=== PATIENT | female | born 1990 | race African-American/Black ===

== ENCOUNTER 2016-10-18 07:31 | Day surgery (SDC) | payer BC ==
[2016-10-16 16:05] LABS: BASOPHILS 0.5 %; BASOPHILS ABSOLUTE 0.03 10/3/uL (0.0-0.16); EOSINOPHILS ABSOLUTE 0.28 10/3/uL (0.0-0.53); HEMATOCRIT 35.3 % (36.0-48.0); HEMOGLOBIN 11.3 g/dL (12.0-16.0); IMMATURE GRANULOCYTES 0.2 %; IMMATURE GRANULOCYTES ABSOLUTE 0.01 10/3/uL (0.0-0.11); LYMPHOCYTES 47.6 %; LYMPHOCYTES ABSOLUTE 2.66 10/3/uL (0.67-4.30); MANUAL DIFF NO %; MEAN CORPUSCULAR HEMOGLOB 26.3 pg (26.0-34.0); MEAN CORPUSCULAR VOLUME 82.1 fL (80-100); MEAN PLATELET VOLUME 9.5 fL (9.2-13.0); MONOCYTES 6.8 %; MONOCYTES ABSOLUTE 0.38 10/3/uL (0.21-1.20); NEUTROPHILS 39.9 %; NEUTROPHILS ABSOLUTE 2.23 10/3/uL (2.02-8.40); PLATELET COUNT 420 10/3/uL (150-400); RBC DISTRIBUTION WIDTH 14.2 % (12.0-16.0); WHITE BLOOD CELLS 5.6 10/3/uL (4.5-10.5)
[2016-10-16 16:17] LABS: PARTIAL THROMBO TIME 29.4 SEC (22.5-37.2); PROTIME (NOT ORD) 12.9 SEC (12.0-14.5)
[2016-10-16 16:24] LABS: ALBUMIN 3.8 G/DL (3.5-5.0); ALKALINE PHOSPHATASE 76 U/L (45-117); BUN (BLOOD UREA NITROGEN) 7 MG/DL (6-23); CALCIUM, SERUM 8.3 MG/DL (8.5-10.4); CHLORIDE, SERUM 109 MMOL/L (96-112); CO2 (CARBON DIOXIDE) 26 MMOL/L (24-34); CREATININE 0.61 MG/DL (0.55-1.02); GFR AFRICAN AMERICAN 147 ML/MIN (>=60); GFR NON AFRICAN AMERICAN 127 ML/MIN (>=60); GLOBULIN 3.7 G/DL (2.5-4.1); GLUCOSE, SERUM 87 MG/DL (60-99); POTASSIUM, SERUM 3.8 MMOL/L (3.5-5.3); SGOT(AST) 12 U/L (5-40); SGPT(ALT) 14 U/L (5-65); SODIUM, SERUM 142 MMOL/L (135-148); TOTAL BILIRUBIN 0.2 MG/DL (0-1.2); TOTAL PROTEIN 7.5 G/DL (6.0-8.5)
--- NOTE | ~2016-10-18 | OP ---
Record Of Operation [facility] [address] [place]. [address] NAME: DOROTA ORTEGA : 89 [place]US : [place] [facility] [place]#: [id number] AGE: 25 ADM/REG DATE : 10/18/16 MR#: [id number] REPORT SERV DATE: 10/18/16 DICTATED BY: DAVID CAPPS III DATE: 10/18/16 REPORT STATUS : Draft TRANSCRIBED BY: MODJoseph DATE: 10/18/16 DATE OF PROCEDURE: 10/18/2016 PREOPERATIVE DIAGNOSIS: Symptomatic cholecystitis with cholelithiasis. POSTOPERATIVE DIAGNOSIS: No stones were found, but obvious of obstruction of the cystic duct with white bile, inflamed mucosa with strawberry changes that were nonbilious in the gallbladder with the white bile as previously noted. The patient also was noted to have mildly enlarged bilateral ovaries and normal looking uterus with some corpus luteum cysts seen on the ovaries bilaterally. The appendix was normal as was the remainder of the small bowel and liver. INFORMAL WAITER/WAITRESS: Jenelle Capps CFA PROCEDURE: Laparoscopic cholecystectomy with intraoperative cholangiogram and right costal margin block for postop pain supplementation using 30 mL of 0.5% Marcaine with epinephrine. SPECIMEN REMOVED: Gallbladder with no stones. ESTIMATED BLOOD LOSS: 5 mL. ANESTHESIA: General with endotracheal tube supplemented with the right costal margin block for postop pain supplementation. PROCEDURE IN DETAIL: The patient was brought to the operating suite and prepped and draped in a standard fashion. A timeout was called and discussion of allergies, which was only nickel as a contact allergy and procedure to be performed as well as the intraoperative cholangiogram. There was no descent amongst the staff and procedure was resumed. After time-in had been called, patient was approached through a small infraumbilical incision made underneath a fairly splayed out umbilicus that did not have a true herniation, but significant weakness beneath the apex of the umbilicus. Open trocar technique was used to enter the peritoneal cavity and a 12 mm balloon port placed in the incision under direct visualization. The balloon was inflated and the abdominal cavity insufflated to 15 mmHg pressure with carbon dioxide gas. The 0 degree angle operative telescope was then placed in peritoneal cavity. Internal exam performed and attention drawn to the area of the gallbladder. An 11 mm trocar was placed through the falciform ligament under video observation and one 5 mm trocar placed in the subcostal level on the right side at the mid axillary line level. Also placed under video observation. The gallbladder was then identified and grasped and a number of feathery adhesions were taken down with blunt and sharp dissection. The gallbladder was skeletonized all the way down to the cystic duct, which was dissected free, identifying the cystic duct and cystic artery. The critical view was obtained showing the. Record Of Operation [address] [place]. [address] NAME: DOROTA ORTEGA : 89 [place]US : [place] [facility] [place] PAT#: [id number] AGE: 25 ADM/REG DATE : 10/18/16 MR#: [id number] REPORT SERV DATE: 10/18/16 DICTATED BY: DAVID CAPPS III DATE: 10/18/16 REPORT STATUS : Draft TRANSCRIBED BY: LADONNA DATE: 10/18/16 DICTATION ENDS HERE. GA/LADONNA David Capps III, M.D. / [id number] CC: Pipo Bejarano III, M.D.
--- NOTE | ~2016-10-18 | OP ---
Record Of Operation [facility] [address] [place]. [address] NAME: DOROTA ORTEGA : 89 [place] [facility] [place] [id number] AGE: 25 ADM/REG DATE : 10/18/16 MR#: [id number] REPORT SERV DATE: 10/18/16 DICTATED BY: DAVID CAPPS III DATE: 10/18/16 REPORT STATUS : Draft TRANSCRIBED BY: MODJoseph DATE: 10/18/16 DATE OF PROCEDURE: 10/18/2016 PREOPERATIVE DIAGNOSES: Cholecystitis and cholelithiasis. POSTOPERATIVE DIAGNOSES: Absence of stones, but obvious white bile was encountered with no stones, but strawberry changes and nonbilious environment were noted. Cystic duct was quite small. Intraoperative cholangiogram was normal. Clinically, this was indicative of obstruction of the cystic duct with the white bile present. OPERATION: Laparoscopic cholecystectomy with intraoperative cholangiogram and followed by a block of the right costal margin with 30 mL of 0.5% Marcaine with epinephrine. [address] SERVICE: Kath Capps RN, [facility]. SPECIMEN REMOVED: Gallbladder with white bile. No stones. ESTIMATED BLOOD LOSS: 5 mL. COMPLICATIONS: There were no complications. Preoperative diagnosis and postoperative diagnosis are noted with the disparity of stones. PATHOLOGY: Cholecystitis with cystic duct obstruction, white bile and no stone. The patient was noted to have bilateral ovaries with corpus luteum cyst and slightly enlarged bilaterally with normal-looking uterus. The patient's appendix was also normal. The small bowel, liver, and stomach were also unremarkable to laparoscopic view. ANESTHESIA: General with endotracheal tube supplemented with 0.5% Marcaine with epinephrine for the right costal margin block. PROCEDURE IN DETAIL: The patient was brought to the operating room and was prepped and draped in routine fashion. A time-out was called and full agreement of the patient, staff with the procedure, indications, and allergies. The patient is allergic to nickel only. Laparoscopic cholecystectomy and intraoperative cholangiogram were agreed upon with no dissenting opinions. The time-in was then called and the procedure proceeded. A small incision was made in the infraumbilical area with open trocar technique used to place a 12 mm balloon port in the peritoneal cavity. The tissue beneath the umbilicus was splayed out and stretched somewhat, but no true herniation was noted. The tissues were thin but not herniated in the area of the umbilicus. The abdomen was insufflated to 15 mmHg pressure with carbon dioxide gas followed by the 0-degree angle operative telescope. Internal exam performed showing the ovarian changes, normal bowel and appendix. The abdomen was entered through the falciform ligament. An 11 mm trocar under video observation followed by another video-directed 5 mm trocar placed at the right costal margin at the midaxillary line level. The gallbladder was grasped and feathering adhesions taken down Record Of Operation [facility] [address] [facility] [place]. [address] NAME: DOROTA ORTEGA : 89 [place] : [place] [facility] [place]#: [id number] AGE: 25 ADM/REG DATE : 10/18/16 MR#: [id number] REPORT SERV DATE: 10/18/16 DICTATED BY: DAVID CAPPS III DATE: 10/18/16 REPORT STATUS : Draft TRANSCRIBED BY: LADONNA DATE: 10/18/16 with blunt and sharp dissection. Hemostasis was achieved with cautery current unipolar. The area of the gallbladder was then dissected and the infundibulum retracted superiorly and the cystic duct identified with critical view showing cystic duct clearly coming into the infundibulum of the gallbladder. The common duct was vaguely identified with cystic duct traveling down to it. The cystic artery was also identified. After the cystic duct and artery were skeletonized, titanium clips were placed strategically, and after this was done, an Arrow catheter was introduced percutaneously and introduced through a small incision in the cystic duct and held in place with a partially collapsed titanium clip. A real-time C-arm intraoperative cholangiography was obtained showing good flow into the duodenum and good flow into the hepatic radicles without filling defects or impedance to flow. The cystic duct catheter and clip were then removed and three titanium clips placed on the cystic duct stump prior to its complete transection. The transected cystic artery was then completed and the retrograde dissection of the gallbladder was carried out with cautery current. Minimal bleeding was incurred and the gallbladder was from gallbladder bed with one hemoclip placed in the fundus of the gallbladder attachment to the liver. The gallbladder was then placed to the side and internal exam completed. There was no evidence of any bleeding and good status of the clips was again noted. Irrigation was carried out with suctioning of the irrigant. The patient was placed in Trendelenburg position and the ovaries identified. The uterus was noted to be unremarkable and the ovaries mildly enlarged bilaterally with corpus luteum cyst bilaterally. The terminal ileum was unremarkable as was the appendix and cecum. The small bowel was laparoscopically unremarkable. After this was done, all areas were checked. The gallbladder was removed through the infraumbilical incision by bringing it to the surface and gently pulling it up. The gallbladder was opened on the back table later on with findings as described. After this was done, all trocars were removed under video observation, and the larger trocar sites were closed with [id number] sutures of 0 Vicryl. Subcutaneous tissues were closed with interrupted 3-0 Vicryl and the skin was closed with Dermabond. Estimated blood loss 5 mL. There were no complications. The patient tolerated the procedure well. GA/LADONNA David Capps III, M.D. / [id number] CC: David Capps III, M.D. Record Of Operation [address] [address] NAME: DOROTA ORTEGA : 89 STATUS : REG [facility]#: [id number] AGE: 25 ADM/REG DATE : 10/18/16 MR#: [id number] REPORT SERV DATE: 10/18/16 DICTATED BY: DAVID CAPPS III DATE: 10/18/16 REPORT STATUS : Draft TRANSCRIBED BY: LADONNA DATE: 10/18/16 NO PCP Harry Guidry M.D.
[~2016-10-18 07:31] MED LIST: MULTIPLE VIT PO; NORCO1 TA1 PO
== END 2016-10-18 15:46 | disposition home or self-care (01) ==
LOC: SDC 07:31
PROVIDERS: Surgery
PROC: BF12YZZ Fluoroscopy of Gallbladder using Other Contrast (ICD-10-PCS; 2016-10-18)
PROC: 0FT44ZZ Resection of Gallbladder, Percutaneous Endoscopic Approach (ICD-10-PCS; principal; 2016-10-18 09:15)
DX: K80.10 Calculus of gallbladder with chronic cholecystitis without obstruction (principal); K66.0 Peritoneal adhesions (postprocedural) (postinfection); N83.12 Corpus luteum cyst of left ovary; N83.11 Corpus luteum cyst of right ovary; Z88.6 Allergy status to analgesic agent; Z98.890 Other specified postprocedural states
CPT/HCPCS: 76000; 77001; 80053; 82150; 83690; 84703; 85025; 85610; 85730; 88304; A9270-GY; J0690; J1170; J1885; J2175; J2250; J2405; J2550; J2710; J3010; Q9967